=== PATIENT | female | born 1990 | race Caucasian/White ===

== ENCOUNTER 2023-02-07 12:44 | Outpatient (REF) | payer MEDICAID, SELFPAY ==
--- NOTE | 2023-02-07 15:00 | ENDO_PTH ---
PATIENT: Brea Esparza LOC: [facility] U#:[id number] AGE/SX: 32/F ROOM: RE02/07/[address]: Michelle Banegas DO : 1990 BED: DIS: 02/07/2023 SPEC #: [id number] RECD: 02/10/23 12:49 STATUS: WILFRIDO REQ #: [id number] WIL: 02/07/23 15:[address]: Michelle Banegas DEPT: Surgical Specimen RECD BY: Eri Gomez ENTERED: 02/10/23 12:50 SP TYPE: Endo OTHR DR: Raghavendra Corona Tissues: 1 - ENDOCERVICAL BX/CURRETTE 2 - CERVICAL BIOPSY Procedures: GROSS AND MICRO LEVEL 4 Comments: [id number]
== END 2023-02-07 12:45 | disposition home or self-care (01) ==
LOC: LBN 12:44
PROVIDERS: PCP Family Medicine; Visit Provider Obstetrics & Gynecology
DX: R87.615 Unsatisfactory cytologic smear of cervix (principal); Z12.4 Encounter for screening for malignant neoplasm of cervix
CPT/HCPCS: 88305

== ENCOUNTER 2023-08-04 22:33 | Emergency (ER) | payer SELFPAY ==
[2023-08-04 22:38] VITALS: BP 145/78; PULSE 83; RESP 16; TEMP 36.7; O2SAT 98
--- NOTE | 2023-08-04 22:47 | ED.GENADUL_ITS ---
Discharge Plan Disposition Patient Disposition: Home Condition: Good Discharge Details Clinical Impression: Laceration of forearm, left Primary Care Provider: Raghavendra Corona ED Provider: Sorin Moncada Home Meds and New Rx's Prescriptions: No Action gabapentin 300 mg capsule 300 mg PO DAILY methadone 10 mg/5 mL solution 105 mg PO DAILY citalopram [Celexa] 20 MG tablet 20 mg PO DAILY Hair, Skin and Nails Advanced 1 EACH tablet 1 ea PO DAILY Discharge Instructions Instructions: Care For Your Stitches (ED), Laceration (ED) Additional Instructions: Please keep the area clean and dry. Do not soak the area at all. Monitor closely for any redness, drainage or discharge. For nonabsorbable sutures, please return in 7 to 10 days to have the wound reassessed and the sutures removed. If you come back to the emergency department here it will be free of charge for the suture removal. For long-term scar cosmesis, please make sure to avoid any sun to the area for the next year. Apply moisturizer or vitamin E to the area twice daily for the next 12 months for the best chance of wound/scar medication. Please take a daily multivitamin as well as this can help in wound healing. If you notice any worsening of your symptoms, or any new symptoms such as vomiting, diarrhea, fever, chills, shortness of breath, chest pain, numbness, weakness, or fainting , please return immediately to the emergency department for reevaluation. Please follow up with your primary care provider as soon as possible for reassessment and reevaluation. As always, it was a pleasure participating in your medical care today. Referrals: Raghavendra Corona [Primary Care Provider] - [facility] General Date/Time Provider Initiated Documentation: 08/04/23 22:36 . [facility] Narrative: This is a pleasant 32-year-old female with a past medical history of irritable bowel syndrome, depression, anxiety, currently on methadone, who presents today for laceration of her left forearm. She is right-hand dominant. Patient states that she was walking around in the dark when she slipped and hit her left forearm on sheet metal. This was at about 630, she waited 2 hours to come in for further evaluation as it continued to bleed. She admits to numbness around the laceration site itself, but denies any numbness or tingling in the hand. No other complaints at this time. No other modifying factors. Tetanus is not up-to-date. Related Data Home Medications Medication Instructions Recorded Confirmed citalopram 20 mg tablet (Celexa) 20 mg PO DAILY 06/30/15 08/04/23 multivitamin,min-ferrous fumarate 1 ea PO DAILY 06/30/15 08/04/23 3.3 mg-folic 25 mcg-herb tablet (Hair, Skin and Nails Advanced) gabapentin 300 mg capsule 300 mg PO DAILY 02/07/23 08/04/23 methadone 10 mg/5 mL oral solution 105 mg PO DAILY 02/07/23 08/04/23 Allergies Allergy/AdvReac Type Severity Reaction Status Date / Time No Known Allergies Allergy Unverified 08/04/23 22:42 General Stated Complaint: Laceration DANNIE: 4 Review of Systems All systems reviewed & are unremarkable except as noted in HPI and below Exam Narrative Exam Narrative: 1.Const: Well-nourished, Well-developed, appearing stated age 2.Eyes: PERRL, no conjunctival injection, and symmetrical lids. 3.ENT: Atraumatic external nose and ears. Moist MM. Neck: Symmetric, trachea midline, No thyromegaly. 4.CVS: +S1/S2, No murmurs or gallops. Peripheral pulses 2+ and equal in all extremities. Brisk capillary refill in all extremities. 5.RESP: Unlabored respiratory effort. Clear to auscultation bilaterally. No wheezes rales or rhonchi 6.GI: Soft, Nontender/Nondistended, No hepatosplenomegaly. No guarding or rebound. 7.MSK: Normocephalic, Extremities w/o deformity or ttp aside for over the area of the laceration no cyanosis or clubbing, Normal movement of all extremities. Distal exam to the laceration site demonstrates excellent flexion and extension of the wrist and hand and all fingers for the left upper extremity. Brisk capillary refill, radial pulse +2 bilaterally. 8.Skin: Left forearm demonstrates V-shaped laceration total of 3 cm in total length. Relatively superficial. No evidence of muscular involvement. No tendon involvement. No active bleeding at this time. No foreign bodies on washout. 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 Sensation grossly intact, no focal neurologic deficits. 10.Psych: (AAO) x3. Appropriate mood and affect Course Vital Signs Vital signs: Vital Signs Temperature 36.7 C 08/04/23 22:38 Pulse 83 08/04/23 22:38 Respiratory Rate 16 08/04/23 22:38 Blood Pressure 145/78 H 08/04/23 22:38 Pulse Oximetry 98 08/04/23 22:38 Temperature 36.7 C 08/04/23 22:38 Temperature Source Temporal Artery Scan 08/04/23 22:38 Pulse 83 08/04/23 22:38 Respiratory Rate 16 08/04/23 22:38 Respiratory Effort Normal, Non-Labored 08/04/23 22:43 Blood Pressure 145/78 H 08/04/23 22:38 Blood Pressure Position Sitting 08/04/23 22:38 Pulse Oximetry 98 08/04/23 22:38 Oxygen Delivery Method Room Air 08/04/23 22:38 Oxygen Flow Rate 0 08/04/23 22:38 Pain Level 3 08/04/23 22:38 Procedures Laceration Laceration 1: Site: upper extremity Side (If applicable): left Size (cm): 3 Description: linear Depth: simple, single layer Local Anesthetic: Lidocaine 1% and with Epi Amount of anesthesia used (mL): 5 Pre-repair: wound explored, irrigated extensively and deep structures intact Skin layer closed with: nylon Size (cm): 4-0 Number of sutures: 7 Technique: simple, interrupted Medical Decision Making This is a pleasant 32-year-old female with a past medical history of irritable bowel syndrome, depression, anxiety, currently on methadone, who presents today for laceration of her left forearm. She is right-hand dominant. Patient states that she was walking around in the dark when she slipped and hit her left forearm on sheet metal. This was at about 630, she waited 2 hours to come in for further evaluation as it continued to bleed. She admits to numbness around the laceration site itself, but denies any numbness or tingling in the hand. No other complaints at this time. No other modifying factors. Tetanus is not up-to-date. Exam demonstrates well-appearing female, V-shaped 3 cm laceration on left forearm, distal exam demonstrates normal neurovascular component, normal muscular strength. No other abnormalities otherwise. We will update the patient's tetanus, wash out the area, suture the laceration. Wound washed out, and no foreign bodies noted. No significant bony tenderness. 7 simple interrupted sutures were placed, no complications. This was done with nylon. Patient tolerated procedure well. Discussed red flags for which to return. I have extensively reviewed the treatment plan and discharge instructions with the patient and their family. I have addressed all patient concerns at this time. The patient and family was made aware of what symptoms to monitor for that would warrant a return to the emergency department. Discussed the plan with the patient and family, they demonstrate verbal understanding and agreement with our assessment and plan at this time. The documentation in this chart was dictated using [employer] dictation software. Please excuse any dictation errors. Quality:SDOH Health Related Social Needs: No Data to Display PFSH All Active Problems (Updated 08/04/23 @ 22:52 by Sorin Moncada DO) Laceration of forearm, left (Acute) Atypical squamous cell changes of undetermined significance (ASCUS) on cervical cytology with positive high risk human papilloma virus (HPV) (Acute) 2016?L ELIA Pap. No follow-up Hx of hernia repair (Chronic) Depression (Chronic) Anxiety (Chronic) IBS (irritable bowel syndrome) (Chronic) Social History Smoking/Tobacco Use Status: Current every day Tobacco Type: cigarettes Smoking risk assessment performed?: Yes Alcohol Intake: never Drug use: Daily Substance use type: marijuana Housing: house Do you feel safe at home: Yes Do you feel safe in your relationship?: Yes
[2023-08-04] MEDS: Lidocaine 1% Multi-Dose W/EPI 1/100,000 50 ML VIAL (23:02)
== END 2023-08-04 23:19 | disposition home or self-care (01) ==
PROVIDERS: Emergency Provider Student in an Organized Health Care Education/Training Program; PCP Family Medicine
DX: S51.812A Laceration without foreign body of left forearm, initial encounter (principal); W01.118A Fall on same level from slipping, tripping and stumbling with subsequent striking against other sharp object, initial encounter; Y93.01 Activity, walking, marching and hiking; Y92.89 Other specified places as the place of occurrence of the external cause
CPT/HCPCS: 12002; 90715; 99283; J2004